=== PATIENT | male | born 1950 | race African-American/Black ===

== ENCOUNTER 2018-03-13 20:23 | Emergency (ER) | payer MEDICARE ==
[2018-03-13 20:33] VITALS: TEMP 98
--- NOTE | 2018-03-13 21:00 | ED ---
SOB HPI - General Source: EMS, RN notes reviewed, old records reviewed Mode of arrival: EMS Limitations: no limitations <Kacie Madrid - Last Filed: 03/14/18 03:23> <Hilda Desai - Last Filed: 03/14/18 06:23> - General Chief Complaint: Shortness of Breath Stated Complaint: SOB Time Seen by Provider: 03/13/18 20:42 - History of Present Illness Initial Comments: 68-year-old male with history of asthma and COPD, Patient is a smoker presents emergency department today with chief complaint of acute asthma exacerbation. Patient reports that he was driving and felt like the asthma exacerbation was starting. He pulled over to the side and flagged down a bystander to call EMS. They gave him a DuoNeb treatment as well as IV Solu-Medrol. He reports he is feeling much better at this time. Patient states that he is out of his inhalers at home. Reports no recent fevers or chills. He denies any productive cough. Denies chest pain or abdominal pain at this time. (Kacie Madrid) - Related Data Previous Rx's Medication Instructions Recorded Albuterol Inhaler [Ventolin Hfa 1 - 2 puff INHALATION RT-Q6H PRN 03/13/18 Inhaler] #1 inhaler Budesonide-Formot 160-4.5 Mcg 2 puff INHALATION BID #1 inhaler 03/13/18 [Symbicort 160-4.5 Mcg Inhaler] Tiotropium Alta [Spiriva] 1 cap INHALATION DAILY #1 device 03/13/18 predniSONE 50 mg PO DAILY #5 tablet 03/13/18 Allergies Allergy/AdvReac Type Severity Reaction Status Date / Time Iodinated Contrast- Oral and Allergy Anaphylaxis Verified 03/13/18 20:46 IV Dye Review of Systems ROS Other: All systems not noted in ROS Statement are negative. <Kacie Madrid - Last Filed: 03/14/18 03:23> ROS Other: All systems not noted in ROS Statement are negative. <Hilda Desai - Last Filed: 03/14/18 06:23> ROS Statement: Those systems with pertinent positive or pertinent negative responses have been documented in the HPI. Past Medical History Past Medical History: Asthma, COPD History of Any Multi-Drug Resistant Organisms: None Reported Past Surgical History: Cholecystectomy, Heart Catheterization With Stent Past Psychological History: No Psychological Hx Reported Smoking Status: Current every day smoker Past Alcohol Use History: Occasional Past Drug Use History: None Reported <Kacie Madrid - Last Filed: 03/14/18 03:23> General Exam Limitations: no limitations General appearance: alert, in no apparent distress Head exam: Present: atraumatic, normocephalic, normal inspection Eye exam: Present: normal appearance, PERRL, EOMI. Absent: scleral icterus, conjunctival injection, periorbital swelling ENT exam: Present: normal exam Neck exam: Present: normal inspection, tenderness Respiratory exam: Present: normal lung sounds bilaterally. Absent: respiratory distress, wheezes, rales, rhonchi, stridor Cardiovascular Exam: Present: regular rate, normal rhythm, normal heart sounds. Absent: systolic murmur, diastolic murmur, rubs, gallop, clicks GI/Abdominal exam: Present: soft, normal bowel sounds. Absent: distended, tenderness, guarding, rebound, rigid Extremities exam: Present: normal inspection, full ROM, normal capillary refill. Absent: tenderness, pedal edema, joint swelling, calf tenderness Back exam: Present: normal inspection Neurological exam: Present: alert, oriented X3, CN II-XII intact <Kacie Madrid - Last Filed: 03/14/18 03:23> <Hilda Desai - Last Filed: 03/14/18 06:23> - General Exam Comments Initial Comments: 68-year-old male. Alert and oriented. No acute distress. (Kacie Madrid) Vital Signs 03/13/18 03/13/18 03/13/18 20:26 21:00 22:37 Temperature 98.0 F 98.0 F Pulse Rate 88 80 89 Respiratory 18 14 18 Rate Blood Pressure 169/79 169/79 137/82 O2 Sat by Pulse 97 97 95 Oximetry 03/13/18 03/13/18 23:33 23:43 Temperature Pulse Rate 84 91 Respiratory Rate Blood Pressure O2 Sat by Pulse Oximetry Medical Decision Making - Radiology Data Radiology results: report reviewed <Kacie Madrid - Last Filed: 03/14/18 03:23> <Hilda Desai - Last Filed: 03/14/18 06:23> - Medical Decision Making Patient is 68-year-old male who presents emergency Department with chief complaint of acute asthma exacerbation. Patient arrived via EMS and was given IV Solu-Medrol and DuoNeb treatment. Upon arrival to emergency department he stated he felt much better denies any wheezing or trouble breathing. He denied chest pain. Patient is lungs were clear to auscultation he otherwise appears well and complains of no pain. Patient was given a chest x-ray which was reviewed and negative for any acute process. Patient was subsequently discharged with prescriptions for his inhalers that he is out of as well as by mouth steroids for acute asthma and COPD exacerbation. Upon discharge, Patient before patient out in the waiting room and then returned due to increasing shortness of breath. At this time we did give a subsequent breathing treatments he has had some mild wheezing noted. I did discuss with the Patient that I wanted to do further evaluation at that time including blood work. Patient cooperated for EKG. This is negative for any acute process. He then refused blood work and further testing. I did discuss this time without including blood work I will have the Patient sign out against medical housekeeper. After subsequent breathing treatment and he did feel better. He stated that when the cold air in the hallway in his throat that caused him to have the shortness of breath. I did discuss that he'll be leaving AMA and discussed strict return parameters. Patient agrees to treatment plan will comply. ( Kacie Madrid) I was available for consultation in the emergency department. The history and physical exam were done by the midlevel provider. I was consulted for this patient's care. I reviewed the case with the midlevel provider and based on their presentation of the patient, I agree with the assessment, medical decision making and plan of care as documented. (Hilda Desai) 03/14/18 02:06 EKG shows normal sinus rhythm rightward axis. Ventricular rate of 91 bpm. AK interval is 150 ms. QRS duration 80 ms. QT QTC 360/442 ms. (Kacie Madrid) - Radiology Data Normal chest x-ray. (Kacie Madrid) Disposition Is patient prescribed a controlled substance at d/c from ED?: No Time of Disposition: 21:56 <Kacie Madrid - Last Filed: 03/14/18 03:23> <Hilda Desai - Last Filed: 03/14/18 06:23> Clinical Impression: Asthma attack, Dyspnea, Medication refill Disposition: Left Against Medical Advice Condition: Good Instructions: Asthma (ED) Additional Instructions: and advised to use the inhaler as prescribed follow up with primary care provider. Take the steroids as directed. Return to emergency department if any alarming signs or symptoms occur. Prescriptions: Albuterol Inhaler [Ventolin Hfa Inhaler] 1 - 2 puff INHALATION RT-Q6H PRN #1 inhaler PRN Reason: Shortness Of Breath Budesonide-Formot 160-4.5 Mcg [Symbicort 160-4.5 Mcg Inhaler] 2 puff INHALATION BID #1 inhaler predniSONE 50 mg PO DAILY #5 tablet Tiotropium Alta [Spiriva] 1 cap INHALATION DAILY #1 device Referrals: None,Stated [Primary Care Provider] - 1-2 days Alondra Gallagher MD [REFERRING] - 1-2 days
--- NOTE | 2018-03-13 21:07 | XR ---
EXAMINATION TYPE: XR chest 2V DATE OF EXAM: 03/13/2018 COMPARISON: NONE HISTORY: Shortness of breath, asthma attack. TECHNIQUE: Frontal and lateral views of the chest are obtained. FINDINGS: Overlying EKG leads are seen. There is no focal air space opacity, pleural effusion, or pne umothorax seen. The cardiac silhouette size is within normal limits. There is atherosclerotic change in aortic knob. The osseous structures are intact. IMPRESSION: No suspicious acute pulmonary process.
[2018-03-13 22:39] VITALS: BP 137/82; RESP 18
[2018-03-13] MEDS ORDERED: IPRATROPIUM-ALBUTEROL 3 ML NEB INHALATION STA (23:09)
[2018-03-13 23:45] VITALS: PULSE 91
== END 2018-03-13 23:56 | disposition left against medical advice (07) ==
LOC: EC 20:23
DX: J44.9 Chronic obstructive pulmonary disease, unspecified (principal); Z76.0 Encounter for issue of repeat prescription; F17.200 Nicotine dependence, unspecified, uncomplicated; Z91.041 Radiographic dye allergy status
CPT/HCPCS: 71046; 93005; 94640; 99285